=== PATIENT | female | born 1965 | race Two or more races ===

== ENCOUNTER 2016-08-31 22:44 | Emergency (ER) | payer BC ==
[2016-08-31 22:57] VITALS: RESP 18
[2016-08-31] MEDS ORDERED: ONDANSETRON 4 MG/2 ML VIAL IVP ONE (22:58)
[2016-08-31] MEDS ORDERED: HYDROmorphONE/DILAUDID 1 MG/ML SYR IVP ONE (23:00)
--- NOTE | 2016-08-31 23:09 | EDPHY ---
H & P Time Seen by Provider: 08/31/16 23:08 HPI/ROS: This 50-year-old female with past medical history of anemia, esophagitis, bilateral tubal ligation and appendectomy presents to the emergency department today with her complaining of an acute onset of suprapubic pain that started about 45 minutes ago. She was sitting on the couch watching TV when the pain came on. She describes it as a severe cramping pain that she rated at 10/10. It was so severe it was hard to stand up. She took 2 Advil earlier in the evening for menstrual cramping and the usual headache that she gets when she is on her period. She has been on her menstrual period on and off for the last 2 weeks. She has been having heavy periods since she was young but they have been heavier over the last year as well as abnormal heavy bleeding alternating with spotting. Sometimes she will have clots. She has not been ill recently and denies fever, chills, lightheadedness, chest pain, shortness of breath, diarrhea, constipation, or dysuria. She recently restarted taking her iron pills that she was given a few years ago for anemia. She also remembers having a cone biopsy about 10 years ago but does not remember the results. Her last Pap smear was 1 year ago and was normal. She denies vaginal discharge or concern for sexually transmitted infections. both delivered by . The remainder of the 10 point review of systems is negative. Past Medical/Surgical History: Past medical history includes Anemia, esophagitis, seasonal allergies, GERD, Past surgical history includes bilateral tubal ligation, 2 C sections, appendectomy, cone biopsy Family history mother from complications of diabetes, chronic kidney failure, congestive heart failure. She had migraines. Father is in good health Sister is in good health No family history of uterine or ovarian cancer. Allergies include amoxicillin, bismuth, metronidazole, tetracyclines Medications include iron and Nexium Smoking Status: Never smoked (No tobacco products, no alcohol, no marijuana or other illicit drugs) Physical Exam: General: Alert and oriented x3, in moderate distress Skin: Warm, dry, normal for ethnicity HEENT: Normocephalic, atraumatic, pupils equal round reactive to light, extra ocular muscles intact Neck: Supple, nontender, no JVD Cardiovascular: Regular rate and rhythm, no murmurs, gallops, or rubs, normal peripheral perfusion, no edema Pulmonary: Clear to auscultation bilaterally, no rales, rhonchi or wheezing Abdomen, soft, nondistended, tender to palpation over the suprapubic region. No tenderness over the right lower quadrant or the left lower quadrant. No tenderness over the right upper quadrant epigastric region or left upper quadrant. No pulsatile masses. Normal bowel sounds. : The patient states she is due for her pelvic exam and would like to defer the pelvic exam to her [facility] [facility] next week. Musculoskeletal: No clubbing, cyanosis, or edema. Moves all extremities well. Neurologic exam: Cranial nerves 2-12 grossly intact, nonfocal exam. Constitutional: Initial Vital Signs Temperature (C) 97.5 F 08/31/16 22:53 Heart Rate 88 08/31/16 22:53 Respiratory Rate 18 08/31/16 22:53 Blood Pressure 170/95 H 08/31/16 22:53 O2 Sat (%) 96 08/31/16 22:53 O2 Delivery Mode Room Air O2 (L/minute) 2 Allergies/Adverse Reactions: amoxicillin [Amoxicillin] Allergy (Verified 08/31/16 23:32) Hives colloidal bismuth subcitrate [From Pylera] Allergy (Verified 08/31/16 23:32) metronidazole [From Pylera] Allergy (Verified 08/31/16 23:32) tetracycline HCl [From Pylera] Allergy (Verified 08/31/16 23:32) Home Medications: Medication Instructions Recorded NK [No Known Home Meds] 09/01/16 Medical Decision Making Procedures: Patient declined pelvic exam ED Course/Re-evaluation: The patient was seen and examined, vital signs were reviewed. The patient has elevated blood pressure and was advised to follow up with her primary care provider regarding this. Her orthostatics were negative. Her oxygen saturations briefly dropped after receiving Dilaudid in the emergency department. The Dilaudid did bring her pain down to under 5/10. She received IV fluids. Her CBC was remarkable for a hemoglobin of 10.6 and hematocrit of 32.4. Her H&H was reviewed back to 2010 and ranged anywhere from a low of 10.8 to a high of 12.4 during that time. Also in 2014 she had an iron level of 35. Her chemistry panel was unremarkable. Her urinalysis showed only blood which was expected due to her being on her period. Her serum test was negative. Patient will follow up with her [facility] [facility] next week for pelvic exam and I have recommended that she have a pelvic ultrasound as well. She may continue ibuprofen or acetaminophen for her discomfort at home. She should return to the emergency department if the pain should worsen or change, if she gets lightheaded or has any other concerns. Differential Diagnosis: Includes but is not limited to urinary tract infection, dysfunctional or functional uterine bleeding, uterine fibroids, ectopic , ureterolithiasis, bladder cancer, uterine or ovarian cancer. - Data Points Laboratory Results: Laboratory Results 08/31/16 23:05 08/31/16 23:05 08/31/16 08/31/16 08/31/16 23:50 23:05 23:05 WBC 8.92 10^3/uL 10^3/uL (3.80-9.50) RBC 4.03 10^6/uL L 10^6/uL (4.18-5.33) Hgb 10.6 g/dL L g/dL (12.6-16.3) Hct 32.4 % L % (38.0-47.0) MCV 80.4 fL L fL (81.5-99.8) MCH 26.3 pg L pg (27.9-34.1) MCHC 32.7 g/dL g/dL (32.4-36.7) RDW 15.0 % % (11.5-15.2) Plt Count 508 10^3/uL H 10^3/uL (150-400) MPV 9.4 fL fL (8.7-11.7) Neut % (Auto) 57.2 % % (39.3-74.2) Lymph % (Auto) 33.2 % % (15.0-45.0) [place] % (Auto) 8.7 % % (4.5-13.0) Eos % (Auto) 0.3 % L % (0.6-7.6) Baso % (Auto) 0.4 % % (0.3-1.7) Nucleat RBC Rel Count 0.0 % % (0.0-0.2) Absolute Neuts (auto) 5.09 10^3/uL 10^3/uL (1.70-6.50) Absolute Lymphs (auto) 2.96 10^3/uL 10^3/uL (1.00-3.00) Absolute Monos (auto) 0.78 10^3/uL 10^3/uL (0.30-0.80) Absolute Eos (auto) 0.03 10^3/uL 10^3/uL (0.03-0.40) Absolute Basos (auto) 0.04 10^3/uL 10^3/uL (0.02-0.10) Absolute Nucleated RBC 0.00 10^3/uL 10^3/uL (0-0.01) Immature Gran % 0.2 % % (0.0-1.1) Immature Gran # 0.02 10^3/uL 10^3/uL (0.00-0.10) Sodium 138 mEq/L mEq/L (134-144) Potassium 3.7 mEq/L mEq/L (3.5-5.2) Chloride 102 mEq/L mEq/L (97-110) Carbon Dioxide 22 mEq/l mEq/l (22-31) Anion Gap 14 mEq/L mEq/L (8-16) BUN 14 mg/dL mg/dL (7-23) Creatinine 0.7 mg/dL mg/dL (0.6-1.0) Estimated GFR > 60 Glucose 106 mg/dL H mg/dL (70-100) Calcium 9.3 mg/dL mg/dL (8.5-10.4) Total Bilirubin 0.3 mg/dL mg/dL (0.1-1.4) Conjugated Bilirubin 0.3 mg/dL mg/dL (0.0-0.5) Unconjugated Bilirubin 0.0 mg/dL mg/dL (0.0-1.1) AST 27 IU/L IU/L (14-46) ALT 30 IU/L IU/L (9-52) Alkaline Phosphatase 117 IU/L IU/L (38-126) Total Protein 7.3 g/dL g/dL (6.3-8.2) Albumin 4.0 g/dL g/dL (3.5-5.0) Lipase 139.0 IU/L IU/L (23-300) Beta HCG, Qual Urine Color YELLOW Urine Appearance CLEAR Urine pH 7.0 (5.0-7.5) Ur Specific May 1.010 (1.002-1.030) Urine Protein NEGATIVE (NEGATIVE) Urine Ketones NEGATIVE (NEGATIVE) Urine Blood 3+ H (NEGATIVE) Urine Nitrate NEGATIVE (NEGATIVE) Urine Bilirubin NEGATIVE (NEGATIVE) Urine Urobilinogen 0.2 EU EU (0.2-1.0) Ur Leukocyte Esterase NEGATIVE (NEGATIVE) Urine RBC 10-15 /hpf H /hpf (0-3) Urine WBC 1-3 /hpf /hpf (0-3) Ur Epithelial Cells TRACE /lpf /lpf (NONE-1+) Urine Bacteria NONE SEEN /hpf /hpf (NONE SEEN) Urine Glucose NEGATIVE (NEGATIVE) 08/31/16 23:05 WBC RBC Hgb Hct MCV MCH MCHC RDW Plt Count MPV Neut % (Auto) Lymph % (Auto) [place] % (Auto) Eos % (Auto) Baso % (Auto) Nucleat RBC Rel Count Absolute Neuts (auto) Absolute Lymphs (auto) Absolute Monos (auto) Absolute Eos (auto) Absolute Basos (auto) Absolute Nucleated RBC Immature Gran % Immature Gran # Sodium Potassium Chloride Carbon Dioxide Anion Gap BUN Creatinine Estimated GFR Glucose Calcium Total Bilirubin Conjugated Bilirubin Unconjugated Bilirubin AST ALT Alkaline Phosphatase Total Protein Albumin Lipase Beta HCG, Qual NEGATIVE Urine Color Urine Appearance Urine pH Ur Specific May Urine Protein Urine Ketones Urine Blood Urine Nitrate Urine Bilirubin Urine Urobilinogen Ur Leukocyte Esterase Urine RBC Urine WBC Ur Epithelial Cells Urine Bacteria Urine Glucose Medications Given: Discontinued Medications Hydromorphone HCl (Dilaudid) 1 mg IVP EDNOW ONE Stop: 08/31/16 23:01 Last Admin: 08/31/16 23:09 Dose: 0.5 mg Sodium Chloride (Ns) 1,000 mls @ 0 mls/hr IV ONCE ONE; TKO PRN Reason: Protocol Stop: 08/31/16 23:11 Last Admin: 08/31/16 23:11 Dose: 1,000 mls Ondansetron HCl (Zofran) 4 mg IVP EDNOW ONE Stop: 08/31/16 22:59 Last Admin: 08/31/16 23:10 Dose: 4 mg Departure - Departure Disposition: Home, Routine, Self-Care Clinical Impression: Dysfunctional or functional uterine hemorrhage, Suprapubic pain, Elevated blood pressure reading Condition: Good Instructions: Dysfunctional Uterine Bleeding (ED), Uterine Fibroids (ED), Acute Abdominal Pain (ED), Hypertension (ED) Additional Instructions: Continue your iron supplements. Consider adding a stool softener to alleviate constipation from the iron. Take ibuprofen for pain (or naproxen) as directed. Call first thing in the morning to arrange follow up with your [employer]. You will need a pelvic exam and a pelvic ultrasound. You also need to have your blood pressure monitored. You may have hypertension. Return to the ER if increased pain, lightheadedness, fever, or any other concerns. Referrals: Alicia Chu MD [Primary Care Provider] - 5-7 days, call for appt. Stand Alone Forms: Work Excuse
[2016-08-31] MEDS ORDERED: NS 1,000 ML IV ONE (23:10)
[2016-08-31 23:18] LABS: % IMMATURE GRANULYOCYTES 0.2 % (0.0-1.1); ABSOLUTE IMMATURE GRANULOCYTES 0.02 10^3/uL (0.00-0.10); ADD DIFF? NO; ADD MORPH? NO; ADD SCAN? NO; ATYPICAL LYMPHOCYTE FLAG 40 (0-99); FRAGMENT RBC FLAG 0 (0-99); HEMATOCRIT 32.4 % (38.0-47.0); HEMOGLOBIN 10.6 g/dL (12.6-16.3); LEFT SHIFT FLG 0 (0-99); LIPEMIA HEMOLYSIS FLAG 80 (0-99); MEAN CELL HEMOGLOBIN 26.3 pg (27.9-34.1); MEAN CELL HEMOGLOBIN CONCENTR. 32.7 g/dL (32.4-36.7); MEAN CELL VOLUME 80.4 fL (81.5-99.8); MEAN PLATELET VOLUME 9.4 fL (8.7-11.7); PLATELET CLUMPS FLAG 0 (0-99); PLATELET COUNT 508 10^3/uL (150-400); RED BLOOD CELL COUNT 4.03 10^6/uL (4.18-5.33)
[2016-08-31 23:24] LABS: ALANINE AMINOTRANSFERASE 30 IU/L (9-52); ALKALINE PHOSPHATASE 117 IU/L (38-126); ANION GAP 14 mEq/L (8-16); ASPARTATE AMINOTRANSFERASE 27 IU/L (14-46); BILIRUBIN,TOTAL 0.3 mg/dL (0.1-1.4); BILIRUBIN-CONJUGATED 0.3 mg/dL (0.0-0.5); CALCIUM 9.3 mg/dL (8.5-10.4); CARBON DIOXIDE 22 mEq/l (22-31); CHLORIDE 102 mEq/L (97-110); CREATININE 0.7 mg/dL (0.6-1.0); GLOMERULAR FILTRATION RATE > 60; GLUCOSE 106 mg/dL (70-100); POTASSIUM 3.7 mEq/L (3.5-5.2); SODIUM 138 mEq/L (134-144); TOTAL PROTEIN 7.3 g/dL (6.3-8.2)
[2016-09-01 00:09] LABS: COLOR YELLOW; LEUKOCYTE ESTERASE,URINE NEGATIVE (NEGATIVE); NITRITE,URINE NEGATIVE (NEGATIVE)
[2016-09-01 00:18] LABS: BACTERIA NONE SEEN /hpf (NONE SEEN)
[2016-09-01 00:22] VITALS: BP 170/100
[2016-09-01 00:23] VITALS: PULSE 71; TEMP 98.8; O2SAT 94
== END 2016-09-01 00:32 | disposition home or self-care (01) ==
LOC: CED 22:44
DX: N93.8 Other specified abnormal uterine and vaginal bleeding (principal); R03.0 Elevated blood-pressure reading, without diagnosis of hypertension; Z90.49 Acquired absence of other specified parts of digestive tract; Z98.51 Tubal ligation status
CPT/HCPCS: 80048-PO; 80076-PO; 81003-PO; 81015-PO; 83690-PO; 84703-PO; 85025-PO; 96374; J1170; J2405

== ENCOUNTER 2017-12-21 18:34 | Emergency (ER) | payer BC ==
[2017-12-21] MEDS ORDERED: EPINEPHRINE 1 MG/ML ONE (18:40)
[2017-12-21] MEDS ORDERED: LIDOCAINE HCL 4% TOPICAL SOLN 50ML ONE (18:41)
--- NOTE | 2017-12-21 19:47 | EDPHY ---
H & P Time Seen by Provider: 12/21/17 18:42 HPI/ROS: This patient describes atraumatic onset of right knee area epistaxis 30 min prior to arrival. She had brief epistaxis in the same [place] 2 days prior to this that stopped within minutes. Tonight there has been no slowing of the bleeding which she describes as moderate unsteady prior to arrival. Her brought her in for evaluation. Constitutional: No fatigue or other complaints HEENT: No recent nasal trauma or URI symptoms per patient Hematologic: No easy bruising or bleeding recently 5 point review of symptoms is performed and otherwise negative with exception of pertinent positives and negatives listed in HPI and ROS Past Medical/Surgical History: Otherwise healthy Smoking Status: Never smoked Physical Exam: Physical Exam Vital signs are normal. General: No acute distress HEENT: Atraumatic. There is moderate bleeding from the right near E emanating from the anterior nasal septum. Left nares clear oropharynx is clear Eyes: Pupils equal and react to light. Extraocular motions are intact. Lungs: No respiratory distress. Cardiac: Brisk capillary refill is intact throughout. Skin: No rash or pallor. Neuro: Alert and oriented x3 with no sensorimotor deficits. Constitutional: Initial Vital Signs Temperature (C) 37.0 C 12/21/17 18:39 Heart Rate 92 12/21/17 18:39 Respiratory Rate 16 12/21/17 18:39 Blood Pressure 177/103 H 12/21/17 18:39 O2 Sat (%) 97 12/21/17 18:39 O2 Delivery Mode Room Air Allergies/Adverse Reactions: amoxicillin [Amoxicillin] Allergy (Verified 12/21/17 18:37) Hives colloidal bismuth subcitrate [From Pylera] Allergy (Verified 12/21/17 18:37) metronidazole [From Pylera] Allergy (Verified 12/21/17 18:37) tetracycline HCl [From Pylera] Allergy (Verified 12/21/17 18:37) Home Medications: Medication Instructions Recorded Iron 12/21/17 Nexium 12/21/17 MDM/Departure - MDM Procedures: Procedure: Epistaxis control. After verbal consent was obtained, the patient was anesthetized with [a 50-50 mix of 4% lidocaine with 1-1000 concentration epinephrine. I sprayed this the patient's nares using 10 mL transient 20-gauge Angiocath 2 mL in each nares. This was followed by soaking cotton ball on the same medication and placed in the right nares for 15 minutes. On repeat examination the epistaxis has resolved. Following the procedure the patient was re-examined and the bleeding was well controlled. The patient tolerated the procedure well. The procedure was performed by myself. There were no complications. ED Course/Re-evaluation: Discussion: Uncomplicated anterior epistaxis controlled with medications. - Depart Disposition: Home, Routine, Self-Care Clinical Impression: Acute anterior epistaxis Condition: Good Instructions: Nosebleed (ED) Additional Instructions: Diagnosis: Anterior Epistaxis Plan: Humidifier and/or Saline mist ([place] for ex.). Avoid blowing nose picking at nose for the next 3-7 days. For any recurrent nosebleed try [id number] Afrin nasal spray and pinch bridge of the nose while leaning forward over a bowl or a toilet. Go to the emergency department for any nosebleed the last more than 20 that is despite the plan. Referrals: NONE *PRIMARY CARE P,. [Primary Care Provider] - As per Instructions Casimiro Pennington MD [Medical Doctor] - As per Instructions
[2017-12-21 20:16] VITALS: BP 143/88
== END 2017-12-21 20:15 | disposition home or self-care (01) ==
LOC: CED 18:34
PROC: 2Y41X5Z Packing of Nasal Region using Packing Material (ICD-10-PCS; principal; 2017-12-21)
DX: R04.0 Epistaxis (principal)